=== PATIENT | male | born 1955 | race African-American/Black ===

== ENCOUNTER 2019-06-04 19:50 | Emergency (ER) | payer OTHER, BC ==
[~2019-06-04] VITALS: Ht 188 cm; Wt 70.6 kg
[2019-06-04] MEDS ORDERED: ASPIRIN81 MG PO (20:18)
[2019-06-04] MEDS ORDERED: ATORVASTATIN CA40 MG PO (20:18)
[2019-06-04] MEDS ORDERED: METOPROL TAR25 MG PO (20:20)
[2019-06-04] MEDS ORDERED: HYDRALAZINE50 MG PO (20:22)
[2019-06-04] MEDS ORDERED: BRILINTA90 MG PO (20:22)
[2019-06-04] MEDS ORDERED: AMOXICILLIN500 MG PO (21:59)
[2019-06-04 22:26] LABS: HEMATOCRIT 40.3 % (39.0-50.0); HEMOGLOBIN 13.1 g/dl (14.0-18.0); IMMATURE GRANULOCYTES 0.3 % (0.0-5.0); MEAN CELL VOLUME 85.9 fL CALC (80.0-100.0); MEAN CORPUSCULAR HGB 27.9 pG CALC (26.0-32.0); MEAN CORPUSCULAR HGB CONC 32.5 g/L CALC (32.0-36.0); NEUT# 4.66 thou/uL (1.82-7.42); RED BLOOD COUNT 4.69 mill/uL (4.70-6.10); RED CELL DISTRI WIDTH 13.2 % (11.5-15.5)
[2019-06-04 22:44] LABS: ALBUMIN 4.3 g/dL (3.2-5.0); ALKALINE PHOSPHATASE 71 u/l (38-126); ANION GAP 12 (6-22 (CALC)); BILIRUBIN, TOTAL 0.6 mg/dL (0.0-1.4); BUN 14 mg/dL (8-23); BUN/CREATININE RATIO 17 (12-20 (CALC)); CARBON DIOXIDE 27 mmol/l (22-30); CHLORIDE 104 mmol/l (95-108); CREATININE 0.9 mg/dL (0.7-1.3); GFR > 60 ML/MIN (>=60 (CALC)); GFR FOR AFR.AMER. > 60 ML/MIN (>=60 (CALC)); POTASSIUM 4.6 mmol/l (3.5-5.1); SGOT/AST 30 u/l (19-48); SODIUM 139 mmol/l (137-146); TOTAL PROTEIN 7.3 g/dL (6.3-8.2)
[2019-06-04] MEDS ORDERED: LORTAB 1010 MG PO (23:02)
[2019-06-04 23:20] VITALS: BP 179/89
== END 2019-06-04 23:20 | disposition home or self-care (01) | DRG 605 ==
LOC: ED 19:50
PROVIDERS: Emergency Medicine
PROC: 0HQFXZZ Repair Right Hand Skin, External Approach (ICD-10-PCS; principal; 2019-06-04)
DX: S61.212A Laceration without foreign body of right middle finger without damage to nail, initial encounter (principal); I10 Essential (primary) hypertension; W20.8XXA Other cause of strike by thrown, projected or falling object, initial encounter; Y93.89 Activity, other specified; Y92.89 Other specified places as the place of occurrence of the external cause; Y99.0 Civilian activity done for income or pay

== ENCOUNTER 2019-06-05 19:57 | Emergency (ER) | payer OTHER, BC ==
[~2019-06-05] VITALS: Ht 188 cm; Wt 70.6 kg
[~2019-06-05 19:57] MED LIST: AMOXICILLIN500 MG PO; ASPIRIN81 MG PO; ATORVASTATIN CA40 MG PO; BRILINTA90 MG PO; HYDRALAZINE50 MG PO; LORTAB 1010 MG PO; METOPROL TAR25 MG PO
[2019-06-05 20:54] VITALS: BP 164/86
== END 2019-06-05 20:54 | disposition home or self-care (01) | DRG 950 ==
LOC: ED 19:57
DX: S61.212D Laceration without foreign body of right middle finger without damage to nail, subsequent encounter (principal); I10 Essential (primary) hypertension; X58.XXXD Exposure to other specified factors, subsequent encounter